=== PATIENT | female | born 1945 | race Caucasian/White ===

== ENCOUNTER 2016-10-28 18:49 | Inpatient (IN) | payer MEDICARE, OTHER ==
[~2016-10-28] VITALS: Ht 167.6 cm; Wt 87.0 kg
[~2016-10-28 18:49] MED LIST: CIPR0.3S EACH EAR; DICL1GEL TOPICAL; ERGO1CAP30 PO; ESTR0.62 VAGINAL; FLUT50SP EACH NARE; HYDR-3583 PO; HYDR50TA3 PO; LEXA10TA PO; LIPI10TA PO; LYRI50CA PO; NALO1TAB2 PO
[2016-10-28] MEDS ORDERED: SODIUM CHLOR 0.9% 1000 ML INJ 1,000 ML IV ONE (19:54)
[2016-10-28] MEDS ORDERED: SODIUM CHLORIDE 0.9% FLUSH 10 ML FLUSH IVF PRN (20:00)
[2016-10-28] MEDS ORDERED: ONDANSETRON HCL 4 MG/2 ML VIAL IVP ONE (20:00)
--- NOTE | 2016-10-28 20:02 | PD ---
HPI Chief Complaint: Generalized weakness Time Seen by Provider: 19:53 Travel History International Travel<30 days: No Contact w/Intl Traveler<30days: No History of Present Illness HPI 70yo F with PMH back surgery s/p neurostimulator presents to the ED with c/o episode of lightheadedness while standing outside [facility]. Pt was talking to her friends and felt very sick with nausea and almost passed out but did not. She lean against the wall and slid down but did not hit her head. She felt better after lying down in ambulance on her way here. Denies any focal weakness , numbness, chest pain, sob, vomiting, abdominal pain, visual changes. PFSH Social History Tobacco Use: Yes Allergies-Medications (Allergen,Severity, Reaction): Coded Allergies: Sulfa (Verified Allergy, Severe, Hives, 10/28/16) Reported Meds & Prescriptions Reported Meds & Active Scripts Active Lyrica (Pregabalin) 50 Mg Cap 50 Mg PO TID Lipitor (Atorvastatin Calcium) 10 Mg Tab 10 Mg PO HS Voltaren Topical (Diclofenac Topical) 1% Gel 1 Applic TOPICAL QID Reported Claritin (Loratadine) 10 Mg Cap 10 Mg PO AC LUNCH Hydrochlorothiazide 25 Mg Tab 25 Mg PO HS Flonase Nasal [place] (Fluticasone Nasal [place]) 50 Mcg/Act [place] 2 [place] EACH NARE DAILY Escitalopram (Escitalopram Oxalate) 10 Mg Tab 10 Mg PO HS Premarin Vaginal (Estrogens, Conjugated Vaginal) 0.625 Mg/Gm Cream 1 Gm VAGINAL Q7D ON SATURDAYS HS Movantik (Naloxegol) 25 Mg Tab 25 Mg PO DAILY PRN Hydrocodone-Acetaminophen 10-325 mg Tab 1 Tab PO TID Review of Systems Except as stated in HPI: all other systems reviewed are Neg Physical Exam Narrative GENERAL: 70yo F not in distress. SKIN: Focused skin assessment warm/dry. HEAD: Atraumatic. Normocephalic. EYES: Pupils equal and round at 3mm bilaterally. EOMI. No scleral icterus. No injection or drainage. ENT: No nasal bleeding or discharge. Mucous membranes pink and moist. NECK: Trachea midline. No JVD. CARDIOVASCULAR: Regular rate and rhythm. No murmur appreciated. RESPIRATORY: No accessory muscle use. Clear to auscultation. Breath sounds equal bilaterally. GASTROINTESTINAL: Abdomen soft, non-tender, nondistended. No rebound tenderness or guarding. MUSCULOSKELETAL: LUE: +Abrasion left forearm. Radial pulse 2+. Sensation intact. FROM left elbow. NEUROLOGICAL: Awake and alert. No obvious cranial nerve deficits. Motor grossly within normal limits. Normal speech. PSYCHIATRIC: Appropriate mood and affect; insight and judgment normal. Data Data Last Documented VS Vital Signs Date Time Temp Pulse Resp B/P Pulse Ox O2 Delivery O2 Flow Rate FiO2 10/28/16 22:34 78 12 140/62 99 Room Air 10/28/16 20:26 98.0 Orders Electrocardiogram (10/28/16 19:54) Basic Metabolic Panel (Bmp) (10/28/16 19:54) Complete Blood Count With Diff (10/28/16 19:54) Magnesium (Mg) (10/28/16 19:54) Ckmb (Isoenzyme) Profile (10/28/16 19:54) Troponin I (10/28/16 19:54) Act Partial Throm Time (Ptt) (10/28/16 19:54) Prothrombin Time / Inr (Pt) (10/28/16 19:54) Urinalysis - C+S If Indicated (10/28/16 19:54) Ecg Monitoring (10/28/16 19:54) Iv Access Insert/Monitor (10/28/16 19:54) Oximetry (10/28/16 19:54) Ondansetron Inj (Zofran Inj) (10/28/16 20:00) Sodium Chloride 0.9% Flush (Ns Flush) (10/28/16 20:00) Sodium Chlor 0.9% 1000 Ml Inj (Ns 1000 M (10/28/16 19:54) Orthostatic Vital Signs (10/28/16 19:54) Forearm (2vws) (10/28/16 ) Tetanus/Diphtheria Tox Adult (Tetanus/Di (10/28/16 20:15) Acetaminophen (Tylenol) (10/28/16 21:15) Potassium Chlor 20 Meq Premix (Kcl 20 Me (10/28/16 22:15) Potassium Chloride (Kcl) (10/28/16 22:15) Admit To Inpatient (10/28/16 ) Vital Signs (Adult) Q4H (10/28/16 22:35) Neuro Checks Q4H (10/28/16 22:35) Activity Oob With Assistance (10/28/16 22:35) Posting Specialist / Telemetry .CONTINUOUS (10/28/16 22:35) Intake + Output CHRISTOPHER.QSHIFT (10/28/16 22:35) Diet Heart Healthy (10/29/16 Breakfast) Sodium Chlor 0.9% 1000 Ml Inj (Ns 1000 M (10/28/16 22:35) Sodium Chloride 0.9% Flush (Ns Flush) (10/28/16 22:45) Sodium Chloride 0.9% Flush (Ns Flush) (10/29/16 09:00) Comprehensive Metabolic Panel (10/29/16 06:00) Complete Blood Count With Diff (10/29/16 06:00) Pt Request For Service (10/28/16 22:35) Case Management Consult (10/28/16 22:35) Scd Bilateral/Knee High CHRISTOPHER.BID (10/28/16 22:35) Naloxone Inj (Narcan Inj) (10/28/16 22:45) Inpatient Certification (10/28/16 ) Admit Order (Ed Use Only) (10/28/16 22:44) Labs Laboratory Tests Test 10/28/16 10/28/16 20:30 21:13 White Blood Count 14.5 TH/MM3 Red Blood Count 4.00 MIL/MM3 Hemoglobin 12.4 GM/DL Hematocrit 35.6 % Mean Corpuscular Volume 89.2 FL Mean Corpuscular Hemoglobin 31.0 PG Mean Corpuscular Hemoglobin 34.8 % Concent Red Cell Distribution Width 13.8 % Platelet Count 281 TH/MM3 Mean Platelet Volume 7.6 FL Neutrophils (%) (Auto) 77.5 % Lymphocytes (%) (Auto) 12.7 % Monocytes (%) (Auto) 8.5 % Eosinophils (%) (Auto) 0.7 % Basophils (%) (Auto) 0.6 % Neutrophils # (Auto) 11.3 TH/MM3 Lymphocytes # (Auto) 1.8 TH/MM3 Monocytes # (Auto) 1.2 TH/MM3 Eosinophils # (Auto) 0.1 TH/MM3 Basophils # (Auto) 0.1 TH/MM3 CBC Comment DIFF FINAL Differential Comment Prothrombin Time 10.9 SEC Prothromb Time International 1.0 RATIO Ratio Activated Partial 23.8 SEC Thromboplast Time Sodium Level 135 MEQ/L Potassium Level 2.7 MEQ/L Chloride Level 96 MEQ/L Carbon Dioxide Level 30.0 MEQ/L Anion Gap 9 MEQ/L Blood Urea Nitrogen 12 MG/DL Creatinine 0.79 MG/DL Estimat Glomerular Filtration 72 ML/MIN Rate Random Glucose 65 MG/DL Calcium Level 8.3 MG/DL Magnesium Level 1.6 MG/DL Total Creatine Kinase 42 U/L Troponin I LESS THAN 0.02 NG/ML Urine Color YELLOW Urine Turbidity HAZY Urine pH 6.5 Urine Specific [place] 1.014 Urine Protein NEG mg/dL Urine Glucose (UA) NEG mg/dL Urine Ketones NEG mg/dL Urine Occult Blood NEG Urine Nitrite NEG Urine Bilirubin NEG Urine Urobilinogen LESS THAN 2.0 MG/DL Urine Leukocyte Esterase NEG Urine RBC 1 /hpf Urine WBC 2 /hpf Urine Squamous Epithelial 7 /hpf Cells Urine Bacteria RARE /hpf Urine Hyaline Casts 4 /lpf Urine Mucus FEW /lpf Microscopic Urinalysis Comment CULT NOT INDICATED MDM Medical Decision Making Medical Screen Exam Complete: Yes Emergency Medical Condition: Yes Interpretation(s) EKG: NSR 73bpm. Normal axis. No ST segment elevation or depression. Laboratory Tests Test 10/28/16 10/28/16 20:30 21:13 White Blood Count 14.5 TH/MM3 (4.0-11.0) Red Blood Count 4.00 MIL/MM3 (4.00-5.30) Hemoglobin 12.4 GM/DL (11.6-15.3) Hematocrit 35.6 % (35.0-46.0) Mean Corpuscular Volume 89.2 FL (80.0-100.0) Mean Corpuscular Hemoglobin 31.0 PG (27.0-34.0) Mean Corpuscular Hemoglobin 34.8 % Concent (32.0-36.0) Red Cell Distribution Width 13.8 % (11.6-17.2) Platelet Count 281 TH/MM3 (150-450) Mean Platelet Volume 7.6 FL (7.0-11.0) Neutrophils (%) (Auto) 77.5 % (16.0-70.0) Lymphocytes (%) (Auto) 12.7 % (9.0-44.0) Monocytes (%) (Auto) 8.5 % (0.0-8.0) Eosinophils (%) (Auto) 0.7 % (0.0-4.0) Basophils (%) (Auto) 0.6 % (0.0-2.0) Neutrophils # (Auto) 11.3 TH/MM3 (1.8-7.7) Lymphocytes # (Auto) 1.8 TH/MM3 (1.0-4.8) Monocytes # (Auto) 1.2 TH/MM3 (0-0.9) Eosinophils # (Auto) 0.1 TH/MM3 (0-0.4) Basophils # (Auto) 0.1 TH/MM3 (0-0.2) CBC Comment DIFF FINAL Differential Comment Prothrombin Time 10.9 SEC (9.8-11.6) Prothromb Time International 1.0 RATIO Ratio Activated Partial 23.8 SEC Thromboplast Time (24.3-30.1) Sodium Level 135 MEQ/L (136-145) Potassium Level 2.7 MEQ/L (3.5-5.1) Chloride Level 96 MEQ/L (98-107) Carbon Dioxide Level 30.0 MEQ/L (21.0-32.0) Anion Gap 9 MEQ/L (5-15) Blood Urea Nitrogen 12 MG/DL (7-18) Creatinine 0.79 MG/DL (0.50-1.00) Estimat Glomerular Filtration 72 ML/MIN (>89) Rate Random Glucose 65 MG/DL (74-106) Calcium Level 8.3 MG/DL (8.5-10.1) Magnesium Level 1.6 MG/DL (1.5-2.5) Total Creatine Kinase 42 U/L (26-192) Troponin I LESS THAN 0.02 NG/ML (0.02-0.05) Urine Color YELLOW (YELLW/STRAW) Urine Turbidity HAZY (CLEAR) Urine pH 6.5 (5.0-8.5) Urine Specific [place] 1.014 (1.002-1.035) Urine Protein NEG mg/dL (NEG-TRACE) Urine Glucose (UA) NEG mg/dL (NEG) Urine Ketones NEG mg/dL (NEG) Urine Occult Blood NEG (NEG) Urine Nitrite NEG (NEG) Urine Bilirubin NEG (NEG) Urine Urobilinogen LESS THAN 2.0 MG/DL (LESS THAN 2.0) Urine Leukocyte Esterase NEG (NEG) Urine RBC 1 /hpf (0-3) Urine WBC 2 /hpf (0-5) Urine Squamous Epithelial 7 /hpf (0-5) Cells Urine Bacteria RARE /hpf (NONE) Urine Hyaline Casts 4 /lpf (RARE) Urine Mucus FEW /lpf (OCC) Microscopic Urinalysis Comment CULT NOT INDICATED Differential Diagnosis Vasovagal near syncope vs. electrolyte abnormality vs. UTI vs. arrhythmia Narrative Course 70yo F with episode of near syncope today. Pt states she did not passed out but was feeling generalized weakness. Labs reviewed, mild leukocytosis. K: 2.7. Pt is on hydrochlorothiazide 25mg. K replaced with 60mEq KCl PO and 20mEq KCl IV. Troponin negative. Glucose 65. Pt is tolerating PO, will give juice. Magnesium is 1.6 which is on the lower end so will give 1gm magnesium sulfate. UA showed rare bacteria but no leukocyte and nitrite. Will admit pt for near syncope and hypokalemia. Discussed with Dr. Cleveland and accepted to his service. Diagnosis Primary Impression: Hypokalemia Additional Impression: Near syncope Admitting Information Admitting Physician Requests: Admit Madison Senior DO Oct 28, 2016 20:02
[2016-10-28] MEDS ORDERED: TETANUS/DIPHTHERIA TOXOID ADULT 0.5 ML VIAL IM ONE (20:15)
[2016-10-28 20:26] VITALS: BP 138/63; PULSE 93; RESP 18; TEMP 98; O2SAT 96
--- NOTE | 2016-10-28 20:34 | RADRPT ---
EXAM DATE/TIME: 10/28/2016 20:11 [facility] COMPARISON: No previous studies available for comparison. INDICATIONS : Right forearm pain after falling tonight. MEDICAL HISTORY : None. SURGICAL HISTORY : None. ENCOUNTER: Initial ACUITY: 1 day PAIN SCORE: 6/10 LOCATION: Left forearm. FINDINGS: Two view examination of the left forearm demonstrates no evidence of fracture or dislocation. Bony m ineralization is normal. The soft tissue structures are intact. CONCLUSION: No acute disease. Laith Mora MD on October 28, 2016 at 20:32 Board Certified Radiologist. This report was verified electronically.
[2016-10-28] MEDS ORDERED: ACETAMINOPHEN 500 MG CPLT PO ONE (21:15)
[2016-10-28 21:16] LABS: AUTOMATED NEUTROPHIL # 11.3 TH/MM3 (1.8-7.7); BASOPHIL # 0.1 TH/MM3 (0-0.2); BASOPHIL % 0.6 % (0.0-2.0); EOSINOPHIL # 0.1 TH/MM3 (0-0.4); EOSINOPHIL % 0.7 % (0.0-4.0); HEMATOCRIT 35.6 % (35.0-46.0); HEMO FLAGS DIFF FINAL; LYMPH % 12.7 % (9.0-44.0); LYMPHOCYTE # 1.8 TH/MM3 (1.0-4.8); MEAN CELL VOLUME 89.2 FL (80.0-100.0); MEAN CORPUSCULAR HGB CONC 34.8 % (32.0-36.0); MONO % 8.5 % (0.0-8.0); NEUT % 77.5 % (16.0-70.0); PLATELET COUNT 281 TH/MM3 (150-450); RED CELL DISTRIBUTION WIDTH 13.8 % (11.6-17.2); WHITE BLOOD COUNT 14.5 TH/MM3 (4.0-11.0)
[2016-10-28 21:23] LABS: APTT (PATIENT) 23.8 SEC (24.3-30.1); PROTHROMBIN TIME - PATIENT 10.9 SEC (9.8-11.6)
[2016-10-28 21:38] LABS: BACTERIA, URINE RARE /hpf; BLOOD, URINE NEG (NEG); COMMENT (UR) CULT NOT INDICATED; CULTURE IF INDICATED CULT NOT INDICATED; GLUCOSE,URINE NEG (NEG); HYALINE CAST, URINE 4 /lpf (RARE); KETONE, URINE NEG (NEG); MUCUS URINE FEW /lpf (OCC); NITRITE,URINE NEG (NEG); PH, URINE 6.5 (5.0-8.5); SQUAMOUS EPITHELIAL CELL URINE 7 /hpf (0-5); URINE COLOR YELLOW (YELLW/STRAW)
[2016-10-28 21:40] VITALS: BP_SYST 136; BP_SYST 138; BP_SYST 150; BP_DIAS 63; BP_DIAS 64; BP_DIAS 66; PULSE 80; RESP 14; O2SAT 98
[2016-10-28 21:58] LABS: ANION GAP 9 MEQ/L (5-15); BLOOD UREA NITROGEN 12 MG/DL (7-18); CHLORIDE 96 MEQ/L (98-107); GLOMERULAR FILTRATION RATE 72 ML/MIN (>89); MAGNESIUM 1.6 MG/DL (1.5-2.5); SODIUM (NA) 135 MEQ/L (136-145)
[2016-10-28 22:10] LABS: CREATINE KINASE 42 U/L (26-192)
[2016-10-28 22:11] LABS: POTASSIUM 2.7 MEQ/L (3.5-5.1)
[2016-10-28] MEDS ORDERED: POTASSIUM CHLOR 20 MEQ PREMIX 100 ML IV ONE (22:15)
[2016-10-28] MEDS ORDERED: POTASSIUM CHLORIDE 20 MEQ CONTROLLED RELEASE TAB PO ONE (22:15)
[2016-10-28] MEDS ORDERED: HYDR25TA5 PO (22:28)
[2016-10-28] MEDS ORDERED: CLAR10CA3 PO (22:28)
[2016-10-28] MEDS ORDERED: ESCI10TA PO (22:28)
[2016-10-28] MEDS ORDERED: FLUT1SPR5 EACH NARE (22:28)
[2016-10-28 22:34] VITALS: BP 140/62; PULSE 78; RESP 12; O2SAT 99
[2016-10-28] MEDS ORDERED: SODIUM CHLORIDE 0.9% FLUSH 10 ML FLUSH IV FLUSH PRN (22:45)
[2016-10-28] MEDS ORDERED: NALOXONE HCL 0.4 MG/ML AMP IV PRN (22:45)
[2016-10-28] MEDS ORDERED: MAGNESIUM SULFATE 1 GM PREMIX 100 ML IV ONE (22:45)
[2016-10-28] MEDS: SODIUM CHLOR 0.9% 1000 ML INJ 1,000 ML IV SCH (23:02)
[2016-10-28 23:50] VITALS: BP 144/66; PULSE 82; RESP 12; O2SAT 100
[2016-10-29] VITALS (11 sets, daily range): BP systolic 116–133; BP diastolic 55–65; PULSE 70–86; RESP 16–20; TEMP 97.6–98; O2SAT 93–97
[2016-10-29] MEDS ORDERED: PREGABALIN 25 MG CAP PO ONE (01:45)
[2016-10-29] MEDS ORDERED: ESCITALOPRAM OXALATE 10 MG TAB PO ONE (01:45)
--- NOTE | 2016-10-29 02:56 | HHI.HP ---
[facility] Service [facility] Primary Care Physician Simran Suárez MD Admission Diagnosis Hypokalemia, near synocpe Diagnoses: Travel History International Travel<30 Days: No Contact w/Intl Traveler <30 Da: No Traveled to Known Affected Are: No History of Present Illness Patient is a pleasant 70-year-old female with a history of hypertension, hyperlipidemia, chronic back pain status post surgery, implantation of spinal stimulator, who presents with acute onset syncope after eating dinner around 7 PM. She had just eaten tacos, was outside the restaurant when she suddenly became diaphoretic, felt lightheaded, and slid down the wall, grazing her left arm. She felt better after lying down in the ambulance. She reports feeling back to recent baseline. As any chest pain or shortness of breath. Denies any nausea, vomiting, fevers, chills, sore throat, cough, diarrhea or constipation Patient does report a 35 pound weight loss over the past year. She denies night sweats. She reports fatigue over the past year, worse over the past 2 months, which she describes as is feeling tired all the time. She does report snoring, but has not had a workup for sleep apnea. She does report easy bruising on her lower extremities over the past year, however has seen her primary care about this. In the ER potassium is found to be 2.7 Review of Systems Performed and negative except for history of present illness and past medical history. Past Family Social History Past Medical History Hyperlipidemia IBS, inflammatory bowel disease. Kidney stones Arthritis Fibromyalgia Migraines Past Surgical History Hysterectomy Tonsillectomy Rods placed and back. Placement of back pain stimulator. Reported Medications Reported Meds & Active Scripts Active Lyrica (Pregabalin) 50 Mg Cap 50 Mg PO TID Lipitor (Atorvastatin Calcium) 10 Mg Tab 10 Mg PO HS Voltaren Topical (Diclofenac Topical) 1% Gel 1 Applic TOPICAL QID Reported Claritin (Loratadine) 10 Mg Cap 10 Mg PO AC LUNCH Hydrochlorothiazide 25 Mg Tab 25 Mg PO HS Flonase Nasal [place] (Fluticasone Nasal [place]) 50 Mcg/Act [place] 2 [place] EACH NARE DAILY Escitalopram (Escitalopram Oxalate) 10 Mg Tab 10 Mg PO HS Premarin Vaginal (Estrogens, Conjugated Vaginal) 0.625 Mg/Gm Cream 1 Gm VAGINAL Q7D ON SATURDAYS HS Movantik (Naloxegol) 25 Mg Tab 25 Mg PO DAILY PRN Hydrocodone-Acetaminophen 10-325 mg Tab 1 Tab PO TID Allergies: Coded Allergies: Sulfa (Verified Allergy, Severe, Hives, 10/28/16) Active Ordered Medications Patient reports that parents from old age. Family History Patient has smoked one half pack per day for 20 years. Social drinker. Denies illicit drugs. Physical Exam Vital Signs Vital Signs Date Time Temp Pulse Resp B/P Pulse Ox O2 Delivery O2 Flow Rate FiO2 10/29/16 00:41 98.0 70 20 121/65 97 10/28/16 23:50 82 12 144/66 100 Room Air 10/28/16 22:34 78 12 140/62 99 Room Air 10/28/16 21:40 72 14 150/64 80 14 138/64 81 14 136/66 10/28/16 21:40 80 14 138/63 98 Room Air 10/28/16 20:26 98.0 93 18 138/63 96 Physical Exam GENERAL: This is a well-nourished, well-developed patient, in no apparent distress. Alert and oriented 3. SKIN: No rashes, ecchymoses or lesions. Cool and dry. HEAD: Atraumatic. Normocephalic. No temporal or scalp tenderness. EYES: Pupils equal round and reactive. Extraocular motions intact. No scleral icterus. No injection or drainage. ENT: Nose without bleeding, purulent drainage or septal hematoma. Throat without erythema, tonsillar hypertrophy or exudate. Uvula midline. Airway patent. NECK: Trachea midline. No JVD or lymphadenopathy. Supple, nontender, no meningeal signs. CARDIOVASCULAR: Regular rate and rhythm without murmurs, gallops, or rubs. RESPIRATORY: Clear to auscultation. Breath sounds equal bilaterally. No wheezes , rales, or rhonchi. GASTROINTESTINAL: Abdomen soft, non-tender, nondistended. No hepato-splenomegaly , or palpable masses. No guarding. MUSCULOSKELETAL: Extremities without clubbing, cyanosis, or edema. No joint tenderness, effusion, or edema noted. No calf tenderness. Negative Homans sign bilaterally. Patient does have abrasion down the left posterior medial forearm. No surrounding erythema. Patient does have small 1-2 cm long, fluid areas of bruising over the right and left ankles. NEUROLOGICAL: Awake and alert. Cranial nerves II through XII intact. Motor and sensory grossly within normal limits. Five out of 5 muscle strength in all muscle groups. Normal speech. Laboratory Laboratory Tests Test 10/28/16 10/28/16 20:30 21:13 White Blood Count 14.5 Red Blood Count 4.00 Hemoglobin 12.4 Hematocrit 35.6 Mean Corpuscular Volume 89.2 Mean Corpuscular Hemoglobin 31.0 Mean Corpuscular Hemoglobin 34.8 Concent Red Cell Distribution Width 13.8 Platelet Count 281 Mean Platelet Volume 7.6 Neutrophils (%) (Auto) 77.5 Lymphocytes (%) (Auto) 12.7 Monocytes (%) (Auto) 8.5 Eosinophils (%) (Auto) 0.7 Basophils (%) (Auto) 0.6 Neutrophils # (Auto) 11.3 Lymphocytes # (Auto) 1.8 Monocytes # (Auto) 1.2 Eosinophils # (Auto) 0.1 Basophils # (Auto) 0.1 CBC Comment DIFF FINAL Differential Comment Prothrombin Time 10.9 Prothromb Time International 1.0 Ratio Activated Partial 23.8 Thromboplast Time Sodium Level 135 Potassium Level 2.7 Chloride Level 96 Carbon Dioxide Level 30.0 Anion Gap 9 Blood Urea Nitrogen 12 Creatinine 0.79 Estimat Glomerular Filtration 72 Rate Random Glucose 65 Calcium Level 8.3 Magnesium Level 1.6 Total Creatine Kinase 42 Troponin I LESS THAN 0.02 Urine Color YELLOW Urine Turbidity HAZY Urine pH 6.5 Urine Specific [place] 1.014 Urine Protein NEG Urine Glucose (UA) NEG Urine Ketones NEG Urine Occult Blood NEG Urine Nitrite NEG Urine Bilirubin NEG Urine Urobilinogen LESS THAN 2.0 Urine Leukocyte Esterase NEG Urine RBC 1 Urine WBC 2 Urine Squamous Epithelial 7 Cells Urine Bacteria RARE Urine Hyaline Casts 4 Urine Mucus FEW Microscopic Urinalysis Comment CULT NOT INDICATED Result Diagram: 10/28/16202910/28/162029 Imaging Last Impressions Radius/Ulna X-Ray 10/28/16 0000 Signed Impressions: Service Date/Time: Friday, October 28, 2016 20:11 - CONCLUSION: No acute disease. Laith Mora MD Assessment and Plan Assessment and Plan //Syncope -Possibly secondary to dehydration. -Hold hydrochlorothiazide. Orthostatic vitals. Carotid ultrasound. Echocardiogram. Monitor on telemetry. //Hypoglycemia. 65. Mild. However, could have contributed to syncope. Continue to monitor blood sugars. //Unintentional weight loss. //Easy bruising over the past year. Have lost 35 pounds over the past year -We'll check chest x-ray due to smoking history -With easy bruising. -I discussed with patient the possibility of malignancy. Patient conveys understanding Follow-up with primary care. //Hypokalemia. Acute. Severe. Replaced. Old HCTZ //Hyperlipidemia. Continue statin //Hypertension. Blood pressure acceptable. Continue to monitor. //Tobacco abuse. Counseling. Cessation strongly advised. //Chronic pain due to back surgery. Continue home medications. //Left arm abrasion. Leave clean and dry. //Depression. Continue antidepressants. Prophylaxis. SCDs. Discussed Condition With Patient, nurse, ED physician. Physician Certification 2 Midnight Certification Type: Admission for Inpatient Services Order for Inpatient Services The services are ordered in accordance with Medicare regulations or non- Medicare payer requirements, as applicable. In the case of services not specified as inpatient-only, they are appropriately provided as inpatient services in accordance with the 2-midnight benchmark. Estimated LOS (days): 2 days is the estimated time the patient will need to remain in the hospital, assuming treatment plan goals are met and no additional complications. Post-Hospital Plan: Home Shahab Cleveland MD Oct 29, 2016 02:56
--- NOTE | 2016-10-29 04:11 | RADRPT ---
EXAM DATE/TIME: 10/29/2016 03:08 [facility] COMPARISON: No previous studies available for comparison. INDICATIONS : Cardiac disease. MEDICAL HISTORY : None. SURGICAL HISTORY : None. ENCOUNTER: Initial ACUITY: 1 day PAIN SCORE: 0/10 LOCATION: Bilateral chest FINDINGS: A single view of the chest demonstrates minimal subsegmental opacity in the lungs. No effusion. No pn eumothorax. Heart size within normal limits. CONCLUSION: 1. Minimal basilar atelectasis. No effusion or pneumothorax. Carlito Bee MD on October 29, 2016 at 4:07 Board Certified Radiologist. This report was verified electronically.
[2016-10-29 07:09] LABS: AUTOMATED NEUTROPHIL # 5.5 TH/MM3 (1.8-7.7); BASOPHIL # 0.1 TH/MM3 (0-0.2); BASOPHIL % 0.7 % (0.0-2.0); EOSINOPHIL # 0.1 TH/MM3 (0-0.4); EOSINOPHIL % 1.1 % (0.0-4.0); HEMATOCRIT 35.1 % (35.0-46.0); HEMO FLAGS DIFF FINAL; LYMPH % 25.4 % (9.0-44.0); LYMPHOCYTE # 2.2 TH/MM3 (1.0-4.8); MEAN CELL VOLUME 90.8 FL (80.0-100.0); MEAN CORPUSCULAR HGB CONC 34.2 % (32.0-36.0); MONO % 8.6 % (0.0-8.0); NEUT % 64.2 % (16.0-70.0); PLATELET COUNT 265 TH/MM3 (150-450); RED BLOOD COUNT 3.86 MIL/MM3 (4.00-5.30); RED CELL DISTRIBUTION WIDTH 13.8 % (11.6-17.2); WHITE BLOOD COUNT 8.6 TH/MM3 (4.0-11.0)
[2016-10-29 07:23] LABS: ALKALINE PHOSPHATASE 60 U/L (45-117); ALT (GPT) 20 U/L (10-53); ANION GAP 6 MEQ/L (5-15); AST (GOT) 15 U/L (15-37); BICARBONATE 28.7 MEQ/L (21.0-32.0); BLOOD UREA NITROGEN 8 MG/DL (7-18); CHLORIDE 106 MEQ/L (98-107); GLOMERULAR FILTRATION RATE 99 ML/MIN (>89); POTASSIUM 4.3 MEQ/L (3.5-5.1); SODIUM (NA) 141 MEQ/L (136-145); TOTAL BILIRUBIN ADULT 0.4 MG/DL (0.2-1.0)
[2016-10-29] MEDS: SODIUM CHLOR 0.9% 1000 ML INJ 1,000 ML IV SCH ×2 (08:59→17:45)
[2016-10-29] MEDS: SODIUM CHLORIDE 0.9% FLUSH 10 ML FLUSH IV FLUSH SCH ×2 (09:00→21:00)
[2016-10-29] MEDS: ACETAMINOPHEN/HYDROcodone 325 MG/10 MG TAB PO SCH ×3 (09:01→23:33)
[2016-10-29] MEDS: PREGABALIN 25 MG CAP PO SCH ×3 (09:01→21:36)
[2016-10-29] MEDS: FLUTICASONE PROPIONATE 50 MCG/ACT 16 GM NASAL SPRAY EACH NARE SCH (10:35)
--- NOTE | 2016-10-29 13:16 | EKG ---
Date Performed: 10/28/2016 Time Performed: 20:47:34 PTAGE: 70 years EKG: Sinus rhythm NORMAL ECG NO PREVIOUS TRACING DOCTOR: Ernesto Tellez Interpretating Date/Time 10/29/2016 13:14:10
[2016-10-29] MEDS ORDERED: ESCITALOPRAM OXALATE 10 MG TAB PO SCH (21:00)
[2016-10-29] MEDS ORDERED: ATORVASTATIN 10 MG TAB PO SCH (21:00)
[2016-10-30] VITALS (7 sets, daily range): BP systolic 139–159; BP diastolic 64–72; PULSE 68–80; RESP 16–18; TEMP 97.7–98.8; O2SAT 94–97
[2016-10-30] MEDS: SODIUM CHLOR 0.9% 1000 ML INJ 1,000 ML IV SCH (04:38)
[2016-10-30] MEDS: SODIUM CHLORIDE 0.9% FLUSH 10 ML FLUSH IV FLUSH SCH (08:19)
[2016-10-30] MEDS: ACETAMINOPHEN/HYDROcodone 325 MG/10 MG TAB PO SCH (08:20)
[2016-10-30] MEDS: PREGABALIN 25 MG CAP PO SCH (08:20)
[2016-10-30] MEDS: FLUTICASONE PROPIONATE 50 MCG/ACT 16 GM NASAL SPRAY EACH NARE SCH (08:20)
--- NOTE | 2016-10-30 10:01 | HHI.PR ---
Subjective Remarks Patient doing well was to go home, no chest pain of breath Objective Vitals Vital Signs Date Time Temp Pulse Resp B/P Pulse Ox O2 Delivery O2 Flow Rate FiO2 10/30/16 09:19 80 10/30/16 08:28 70 143/72 146/66 10/30/16 07:45 97.9 68 18 154/70 95 10/30/16 04:30 97.7 73 16 159/70 97 10/30/16 00:38 18 10/30/16 00:15 98.8 78 16 139/64 95 10/30/16 00:02 80 10/29/16 23:47 18 10/29/16 20:26 97.7 76 16 124/60 94 131/63 122/55 10/29/16 15:14 97.9 85 17 121/57 94 10/29/16 11:32 97.8 77 18 116/57 93 10/29/16 10:19 86 122/61 10/29/16 10:18 80 123/61 10/29/16 10:11 74 122/61 I/O 10/29/16 10/29/16 10/29/16 10/30/16 10/30/16 10/30/16 06:59 14:59 22:59 06:59 14:59 22:59 Intake Total 80 ml 80 ml Balance 80 ml 80 ml Intake Oral 80 ml 80 ml # Voids 1 0 1 1 # Bowel Movements 0 Result Diagram: 10/29/16 0609 10/29/16 0609 Objective Remarks GENERAL: This is a well-nourished, well-developed patient, in no apparent distress. CARDIOVASCULAR: Regular rate and rhythm without murmurs, gallops, or rubs. RESPIRATORY: Clear to auscultation. Breath sounds equal bilaterally. No wheezes , rales, or rhonchi. GASTROINTESTINAL: Abdomen soft, non-tender, nondistended. Normal active bowel sounds MUSCULOSKELETAL: Extremities without clubbing, cyanosis, or edema. NEURO: Alert & Oriented x4 to person, place, time, situation. Moves all ext x4 A/P Assessment and Plan //Syncope -mostly secondary to dehydration. -Hold hydrochlorothiazide. Orthostatic vitals. pt refused work up Carotid ultrasound. Echocardiogram. Monitor on telemetry. she agreed with CT chest to r/o any underlying ,alignancy with her hx iof smoking and weight loss //Hypoglycemia. 65. Mild. However, could have contributed to syncope. Continue to monitor blood sugars. //Unintentional weight loss. //Easy bruising over the past year. Have lost 35 pounds over the past year - chest x-ray Some atelectasis -With easy bruising. -I discussed with patient the possibility of malignancy. Patient conveys understanding Follow-up with primary care. //Hypokalemia. Acute. Severe. Replaced. Old HCTZ //Hyperlipidemia. Continue statin //Hypertension. Blood pressure acceptable. Continue to monitor. //Tobacco abuse. Counseling. Cessation strongly advised. //Chronic pain due to back surgery. Continue home medications. //Left arm abrasion. Leave clean and dry. //Depression. Continue antidepressants. Prophylaxis. SCDs. Discharge Planning Discharge patient to home Condition on discharge: Improved healthy heart Diet as tolerated Ad [place] activity Rx written: see med rec , hold hctz Follow-up with primary care physician n 2-3 days ADDENDUM >>ct CHEST CAME BACK NEGATIVE, WE WILL SEND A COPY TO PCP Harman Torres MD Oct 30, 2016 10:01
[2016-10-30] MEDS ORDERED: IOHEXOL 350 MG/ML 10 ML VIAL (for RAD DIAG) IV ONE (11:41)
--- NOTE | 2016-10-30 12:04 | RADRPT ---
EXAM DATE/TIME: 10/30/2016 11:35 [facility] COMPARISON: No previous studies available for comparison. INDICATIONS : Weight loss, syncope. Evaluate for malignancy. IV CONTRAST: 75 cc Omnipaque 350 (iohexol) IV RADIATION DOSE: 4.86 CTDIvol (mGy) MEDICAL HISTORY : Smoker SURGICAL HISTORY : Hysterectomy. ENCOUNTER: Initial ACUITY: 1 day PAIN SCALE: 0/10 LOCATION: chest TECHNIQUE: Volumetric scanning of the chest was performed. Using automated exposure control and adjustment of the mA and/or kV according to patient size, radiation dose was kept as low as reasonab ly achievable to obtain optimal diagnostic quality images. FINDINGS: LUNGS: There is no consolidation or pneumothorax. No concerning pulmonary nodule is visualized. PLEURA: There is no pleural thickening or pleural effusion. MEDIASTINUM: The heart and great vessels demonstrate no acute abnormality. There is no mediastin al or hilar lymphadenopathy. AXILLAE: Within normal limits. No lymphadenopathy. SKELETAL: Within normal limits for patient age. MISCELLANEOUS: The visualized upper abdominal organs demonstrate no acute abnormality. CONCLUSION: Negative CT scan of the chest. Jose M Rodriguez MD FACR on October 30, 2016 at 12:00 Board Certified Radiologist. This report was verified electronically.
[2016-11-03] MEDS ORDERED: SUMA100T2 PO (11:26)
== END 2016-10-30 15:31 | disposition home or self-care (01) | DRG 641 ==
LOC: NEPE 18:49 → NEDA 22:46 → NEPFCDU 10-29 00:28
PROVIDERS: ADMIT Hospitalist; ATTEND Hospitalist
DX: E86.0 Dehydration (principal); E87.6 Hypokalemia; E16.2 Hypoglycemia, unspecified; R55 Syncope and collapse; R63.4 Abnormal weight loss; S40.812A Abrasion of left upper arm, initial encounter; W18.39XA Other fall on same level, initial encounter; Y92.481 Parking lot as the place of occurrence of the external cause; E78.5 Hyperlipidemia, unspecified; I10 Essential (primary) hypertension; F17.210 Nicotine dependence, cigarettes, uncomplicated; G89.29 Other chronic pain; Z96.89 Presence of other specified functional implants; F32.9 Major depressive disorder, single episode, unspecified; M19.90 Unspecified osteoarthritis, unspecified site; M79.7 Fibromyalgia
CPT/HCPCS: 71010; 71260; 73090; 80048; 80053; 81001; 82550; 82948; 83735; 84484; 85025; 85610; 85730; 90471; 90714; 93005; 96361; 96374; 96375; J2405; J3475; J3480; J7030; Q9967